=== PATIENT | female | born 2000 | race Two or more races ===

== ENCOUNTER 2020-11-09 00:07 | Inpatient (IN) | payer OTHER ==
[~2020-11-09] VITALS: Ht 162.6 cm; Wt 89.8 kg
[2020-11-09] MEDS ORDERED: PRENATAL TABLE1 EAC1 PO (02:07)
== END 2020-11-11 21:48 | disposition home or self-care (01) | DRG 807 ==
LOC: LDR 00:07 → OB/GYN 00:07
PROVIDERS: ADMIT Obstetrics & Gynecology; ATTEND Obstetrics & Gynecology
PROC: 10E0XZZ Delivery of Products of Conception, External Approach (ICD-10-PCS; principal; 2020-11-09)
PROC: 0HQ9XZZ Repair Perineum Skin, External Approach (ICD-10-PCS; 2020-11-09)
PROC: 4A1HXFZ Monitoring of Products of Conception, Cardiac Rhythm, External Approach (ICD-10-PCS; 2020-11-09)
DX: O70.0 First degree perineal laceration during delivery (principal); Z37.0 Single live birth; Z3A.39 39 weeks gestation of pregnancy; Z20.822 Contact with and (suspected) exposure to COVID-19